=== PATIENT | female | born 1995 | race Caucasian/White ===

== ENCOUNTER 2022-04-18 16:53 | Inpatient (IN) | payer OTHER ==
[~2022-04-18] VITALS: Ht 165.1 cm; Wt 68.5 kg
--- NOTE | 2022-04-18 02:00 | NUR ---
PT TRANSFERRED TO ROOM 104B. MORE CONDUCIVE TO RESTING WITHOUT NOISES FROM SUITE MATE. ORIENTED TO NEW ROOM.
[2022-04-18 17:00] VITALS: BP 123/69
--- NOTE | 2022-04-18 17:15 | NUR ---
provided urine, pt to lobby, no ac distress noted
[2022-04-18 17:26] LABS: BASOPHILS # (AUTO) 0.1 K/uL (0.00-0.22); BASOPHILS % (AUTO) 0.3 % (0.0-2.0); EOSINOPHILS # (AUTO) 0.3 K/uL (0-0.4); EOSINOPHILS % (AUTO) 1.7 % (0.0-4.0); HEMATOCRIT 41.2 % (36-48); HEMOGLOBIN 13.8 g/dL (12.0-16.0); LYMPHOCYTES # (AUTO) 1.5 K/uL (2.5-16.5); LYMPHOCYTES % (AUTO) 8.5 % (20.5-51.1); MEAN CORPUSCULAR HEMOGLOBIN 29 pg (27-31); MEAN CORPUSCULAR HGB CONC 33 g/dL (33-37); MEAN CORPUSCULAR VOLUME 87.9 fL (80-94); MONOCYTES # (AUTO) 1.1 K/uL (0.8-1.0); MONOCYTES % (AUTO) 6.4 % (1.7-9.3); NEUTROPHILS # (AUTO) 14.4 K/uL (1.8-7.7); NEUTROPHILS % (AUTO) 83.1 % (42.2-75.2); PLATELET COUNT (AUTO) 262 K/uL (140-450); RED BLOOD CELL COUNT(AUTO) 4.69 MIL/uL (4.20-5.40); RED CELL DISTRIBUTION WIDTH 13.5 % (11.6-13.7); WHITE BLOOD COUNT (AUTO) 17.3 K/uL (4.8-10.8)
[2022-04-18] MEDS ORDERED: NACL 0.9% 1,000 ML IV ONE (17:40)
[2022-04-18] MEDS ORDERED: ONDANSETRON 4 MG/2 ML VIAL IVP ONE (17:40)
[2022-04-18 17:43] LABS: ALBUMIN 4.3 g/dL (3.4-5.0); ANION GAP 10.3 (8-16); CARBON DIOXIDE 29.4 mmol/L (21-32); POTASSIUM 3.7 mmol/L (3.5-5.1); TOTAL BILIRUBIN 0.5 mg/dL (0.0-1.0)
--- NOTE | 2022-04-18 17:45 | NUR ---
PT AMBULATED TO BED 10
--- NOTE | 2022-04-18 18:10 | NUR ---
PT RESTING IN BED. PT. DENIES ANY ABDOMINAL PAIN WHEN SHE IS SEDENTARY.
--- NOTE | 2022-04-18 18:33 | NUR ---
Note undone in [facility] - 04/18/22 at 1836 by [id number] PT RESTING IN BED. PT. DENIES ANY ABDOMINAL PAIN WHEN SHE IS SEDENTARY. Addendum: 04/18/22 at 1836 by [id number] Amendment undone in [facility] - 04/18/22 at 1836 by [id number] PT RESTING IN BED. PT. DENIES ANY ABDOMINAL PAIN WHEN SHE IS SEDENTARY.
--- NOTE | 2022-04-18 18:38 | NUR ---
PT RETURNED FROM CT AT THIS TIME.
--- NOTE | 2022-04-18 19:17 | NUR ---
REPORT GIVEN TO YOLIS DAWSON FOR CONTINUITY OF CARE.
--- NOTE | 2022-04-18 19:19 | NUR ---
ASSUMED CARE OF PT AT THIS TIME.
[2022-04-18] MEDS ORDERED: MAGNESIUM OXIDE 400 MG TAB PO PRN (19:20)
[2022-04-18] MEDS ORDERED: ONDANSETRON 4 MG/2 ML VIAL IVP PRN (19:20)
[2022-04-18] MEDS ORDERED: NACL 0.9% 1,000 ML IV SCH (19:20)
[2022-04-18] MEDS ORDERED: ACETAMINOPHEN 325 MG TAB PO PRN (19:20)
[2022-04-18] MEDS ORDERED: HYDROcodone/APAP 5/325 MG 1 TAB TAB PO PRN (19:20)
[2022-04-18] MEDS ORDERED: KCL 20 MEQ/WATER INJ PREMIX 200 ML IV PRN (19:20)
[2022-04-18] MEDS ORDERED: POTASSIUM CHLORIDE 10 MEQ TABER PO PRN (19:20)
[2022-04-18] MEDS ORDERED: MAG SULF 2000 MG/WATER PREMIX 50 ML IV PRN (19:20)
[2022-04-18] MEDS ORDERED: MORPHINE SULFATE 4 MG/ML SYR IVP PRN (19:20)
[2022-04-18 19:32] LABS: APPEARANCE,URINE SL CLOUDY (CLEAR); BILIRUBIN,URINE NEGATIVE (NEGATIVE); BLOOD, URINE 1+ (NEGATIVE); COLOR,URINE YELLOW (YELLOW); LEUKOCYTE ESTERASE ,URINE NEGATIVE (NEGATIVE); NITRITE, URINE NEGATIVE (NEGATIVE); UGLUCOSE NEGATIVE (NEGATIVE)
--- NOTE | 2022-04-18 19:36 | NUR ---
HANDOFF GIVEN TO YOLIS MERRITT. TX OF CARE.
[2022-04-18] MEDS ORDERED: cefTRIAXone 1,000 MG VIAL ONE (19:47)
[2022-04-18 19:50] LABS: RBC,URINE 0-5 /HPF (0-5); TRICHOMONAS,URINE None Seen /HPF (None Seen); WBC,URINE 0-5 /HPF (0-5); YEAST,URINE None Seen /HPF (None Seen)
[2022-04-18 20:08] LABS: PROTHROMBIN TIME 10.5 secs (10.8-13.4)
--- NOTE | 2022-04-18 21:48 | NUR ---
REPORT CALLED TO YOLIS JEFF
[2022-04-18] MEDS: metroNIDAZOLE 500 MG/NS PREMIX 100 ML IV SCH (21:51)
--- NOTE | 2022-04-18 21:56 | NUR ---
TO 111 VIA W/C ACCOMPANIED BY ERT
--- NOTE | 2022-04-18 22:14 | NUR ---
26 YO FEMALE RECEIVED FROM ED TO ROOM 11A VIA RNEY PER DR. TRUJILLO ,C/C RIGHT ABDOMINAL PAIN, DX ACUTE APPENDICITIS. A/OX4. ABLE TO AMBULATE. PAIN 6/10 AT IT'S INTENSITY. DENIES PAIN WHEN STILL. NPO FOR PROCEDURE TOMORROW . NS TO RIGHT HAND. REPORTED BY ER NURSE SHAINA ROCEPHIN 1000 MG GIVEN IN ER AND PT DENIED NEED FOR MORPHINE. RECEIVED WITH FLAGYL AND NS HANGING RIGHT HAND IV SITE BENIGN.VOIDED IN ER AND LAST BM 04/17/22. ROOM AIR. NO VISUAL DISTRESS. DELIGHTFUL SMILING, INTERACTIVE AND RESTING IN BED.MONITOR AND PREP PT ORDERED.PT ORIENTED TO ROOM WITH SAFETY PRECAUTIONS IN PLACE. BED IN LOWEST POSITION AND WHEELS LOCKED. CALL LIGHT WITHIN REACH. Q1 HOUR ROUNDS.
[2022-04-18 22:15] VITALS: BP 122/65
[2022-04-19 04:00] VITALS: BP 107/54
[2022-04-19] MEDS: metroNIDAZOLE 500 MG/NS PREMIX 100 ML IV SCH ×2 (05:00→13:42)
--- NOTE | 2022-04-19 06:00 | NUR ---
SPONGE OFF AND NEW GOWN. BELLY, NOSE AND EAR PIERCING REMOVED. REQUESTING TO KEEP ON EYELASHES.EXPLAINED DOCTOR DEEMS THEY MUST COME OFF BEFORE SURGERY PT IS INFORMED OF THAT POSSIBILITY. STATED UNDERSTOOD. READY AND AWAITING OR. PRE-OP CHECKLIST COMPLETED AND CONSENT FORMED BUT NOT YET SIGNED. AWAITING DOCTOR INFORMED CONSENT.
[2022-04-19 06:13] LABS: BASOPHILS # (AUTO) 0.1 K/uL (0.00-0.22); BASOPHILS % (AUTO) 0.4 % (0.0-2.0); EOSINOPHILS # (AUTO) 0.2 K/uL (0-0.4); EOSINOPHILS % (AUTO) 1.3 % (0.0-4.0); HEMATOCRIT 37.9 % (36-48); LYMPHOCYTES # (AUTO) 1.8 K/uL (2.5-16.5); MEAN CORPUSCULAR HEMOGLOBIN 30 pg (27-31); MEAN CORPUSCULAR HGB CONC 34 g/dL (33-37); MONOCYTES # (AUTO) 0.9 K/uL (0.8-1.0); MONOCYTES % (AUTO) 5.5 % (1.7-9.3); NEUTROPHILS # (AUTO) 13.4 K/uL (1.8-7.7); NEUTROPHILS % (AUTO) 81.8 % (42.2-75.2); PLATELET COUNT (AUTO) 255 K/uL (140-450); RED BLOOD CELL COUNT(AUTO) 4.31 MIL/uL (4.20-5.40); RED CELL DISTRIBUTION WIDTH 13.2 % (11.6-13.7); WHITE BLOOD COUNT (AUTO) 16.4 K/uL (4.8-10.8)
[2022-04-19 06:29] LABS: ALBUMIN 4.2 g/dL (3.4-5.0); ANION GAP 12.3 (8-16); CREATININE 0.9 mg/dL (0.6-1.3); MAGNESIUM 1.8 mg/dL (1.8-2.4); POTASSIUM 3.3 mmol/L (3.5-5.1); TOTAL BILIRUBIN 0.7 mg/dL (0.0-1.0)
--- NOTE | 2022-04-19 07:20 | NUR ---
ASSUMED CONTINUITY OF CARE. INITIAL ASSESSMENT DONE. EXPLAINED DIAGNOSIS, PLAN OF CARE, PRE-OP TEACHING, PAIN MANAGEMENT TEACHING, USE OF CALL LIGHT, BED, TV, BATHROOM. VERBALIZED UNDERSTANDING. CALL LIGHT WITHIN REACH.
--- NOTE | 2022-04-19 07:30 | NUR ---
HAND-OFF REPORT TO ON-COMING NURSE MARCELINA WHO ASSUMED CARE OF PT AT THIS TIME.
[2022-04-19 08:00] VITALS: BP 107/57
--- NOTE | 2022-04-19 08:00 | NUR ---
Patient's Plan of Care was discussed and reviewed with LETY: JANETT
--- NOTE | 2022-04-19 08:51 | NUR ---
PATIENT HAS BEEN SCREENED AND CATEGORIZED MODERATE NUTRITION RISK. PATIENT WILL BE SEEN WITHIN 3-5 DAYS OF ADMISSION. 04/18/22-04/23/[address]
--- NOTE | 2022-04-19 09:03 | NUR ---
WENT TO OR VIA GURNEY FOR PROCEDURE. NO C/O PAIN. IN STABLE CONDITION.
[2022-04-19] MEDS ORDERED: SEVOFLURANE 250 ML BTL INH ONE (09:30)
[2022-04-19] MEDS ORDERED: HYDROmorphone 1 MG/ML AMP IVP PRN (09:30)
[2022-04-19] MEDS ORDERED: LIDOCAINE 1% 500 MG/50 ML VIAL ONE (09:42)
[2022-04-19] MEDS ORDERED: BUPIVACAINE-MPF/EPI 0.5% 30 ML VIAL INJ ONE ×2 (09:42→09:43)
[2022-04-19] MEDS ORDERED: fentaNYL citrate 0.05 MG/ML VIAL ONE (09:47)
[2022-04-19] MEDS ORDERED: SUCCINYLCHOLINE CHLORIDE 200 MG/10 ML VIAL IVP ONE (10:18)
[2022-04-19] MEDS ORDERED: PROPOFOL 200 MG/20 ML VIAL IV ONE (10:18)
[2022-04-19] MEDS ORDERED: ONDANSETRON 4 MG/2 ML VIAL ONE (10:19)
[2022-04-19] MEDS ORDERED: ROCURONIUM 50 MG/5 ML VIAL IV ONE (10:19)
[2022-04-19] MEDS ORDERED: NEOSTIGMINE 1:1000 10 MG/10 ML VIAL ONE (10:20)
[2022-04-19] MEDS ORDERED: GLYCOPYRROLATE 0.2 MG/ML VIAL ONE ×5 (10:20)
[2022-04-19] MEDS ORDERED: LABETALOL 20 MG/4 ML VIAL IVP PRN (10:45)
[2022-04-19] MEDS ORDERED: METOCLOPRAMIDE 10 MG/2 ML INJ VIAL IVP PRN (10:45)
[2022-04-19] MEDS ORDERED: NACL 0.9% 1,000 ML IV SCH (10:45)
[2022-04-19] MEDS ORDERED: hydrALAZINE 20 MG/ML VIAL IVP PRN (10:45)
[2022-04-19] MEDS: HYDROmorphone 1 MG/ML AMP IVP PRN ×3 (10:48→11:08)
[2022-04-19] MEDS ORDERED: HYDROmorphone PFS 2 MG/ML SYR ONE (10:51)
--- NOTE | 2022-04-19 11:20 | NUR ---
BACK FROM OR VIA GURNEY. KEEP COMFORTABLE ON BED. EXPLAINED POST OP CARE. VERBALIZED UNDERSTANDING.
[2022-04-19 11:30] VITALS: BP 114/67
[2022-04-19 12:00] VITALS: BP 106/63
[2022-04-19] MEDS: HYDROcodone/APAP 5/325 MG 1 TAB TAB PO PRN ×2 (12:06→17:57)
[2022-04-19 13:00] VITALS: BP 102/69
--- NOTE | 2022-04-19 14:40 | NUR ---
AMBULATES ON THE HALLWAY WITH PT. BOYFRIEND. TOLERATED WELL.
--- NOTE | 2022-04-19 15:00 | NUR ---
WENT TO BATHROOM WITHOUT ASSISTANCE. ACCORDING TO PT., THIS IS HER 3RD TIME VOIDED IN THE BATHROOM.
[2022-04-19 16:00] VITALS: BP 103/61
--- NOTE | 2022-04-19 16:39 | NUR ---
PAGED DR. TRUJILLO REGARDING PT. D/C ORDER. INFORMED OF PT. VOIDED 3X, PASSED GAS, AND VS STABLE.
--- NOTE | 2022-04-19 17:48 | NUR ---
CALLED DR. TRUJILLO REGARDING PT. D/C ORDER. DR. TRUJILLO DIDN'T GIVE OR ORDER PRESCRIPTION MEDS. HE ORDER PT. TO FOLLOW UP WITH DR. MIKY MON IN 1 WEEK.
--- NOTE | 2022-04-19 18:25 | NUR ---
EXPLAINED TO PT. ABOUT MD D/C ORDER, POST-OP CARE, DR. MIKY MON (SURGEON) FOLLOW UP IN 1 WEEK AND TO CALL , PAIN MANAGEMENT TEACHING. VERBALIZED UNDERSTANDING.
--- NOTE | 2022-04-19 18:35 | NUR ---
D/C HOME VIA WHEELCHAIR ACCOMPANIED BY PT. BOYFRIEND. IN STABLE CONDITION. INFORMED DIRECTOR HEALTH GAGE.
== END 2022-04-19 19:29 | disposition home or self-care (01) | DRG 710 ==
LOC: MED 16:53 → MTU 19:23
PROVIDERS: ADMIT Hospitalist; ATTEND Hospitalist
PROC: 0DTJ4ZZ Resection of Appendix, Percutaneous Endoscopic Approach (ICD-10-PCS; principal; 2022-04-19 09:25)
DX: A41.9 Sepsis, unspecified organism (principal); E11.9 Type 2 diabetes mellitus without complications; K35.890 Other acute appendicitis without perforation or gangrene; J45.909 Unspecified asthma, uncomplicated; Z20.822 Contact with and (suspected) exposure to COVID-19; I10 Essential (primary) hypertension; Z86.73 Personal history of transient ischemic attack (TIA), and cerebral infarction without residual deficits
CPT/HCPCS: 36415; 71045; 80053; 81001; 81025; 82374; 83605; 83735; 85025; 85610; 85730; 87040; 87081; 88304; 93005; 96365; 96375; 99285; J0330; J0696; J1170; J2001; J2405; J2704; J2710; J3010; J3490; J7030; J7060; Q0092; Q9967